=== PATIENT | female | born 1990 | race Caucasian/White ===

== ENCOUNTER 2018-03-24 20:05 | Inpatient (IN) | payer OTHER ==
[~2018-03-24] VITALS: Ht 172.7 cm; Wt 67.6 kg
[~2018-03-24 20:05] MED LIST: PROVENTIL HFA6.7 GM IH; SINGULAIR10 MG PO; SYMBICORT 80/10.2 GM IH
[2018-03-25] MEDS ORDERED: PRENATAL TABLE1 EAC1 PO (10:57)
[2018-04-01] MEDS ORDERED: CLEOCIN HCL300 MG PO (07:48)
== END 2018-04-01 09:42 | disposition home or self-care (01) | DRG 603 ==
LOC: ER → LDR 03-25 09:10 → OB/GYN 03-25 09:10 → LDR 03-25 09:55 → OB/GYN 03-25 12:41
PROVIDERS: Surgery
PROC: 4A1HXCZ Monitoring of Products of Conception, Cardiac Rate, External Approach (ICD-10-PCS; 2018-03-25)
PROC: 0H98XZZ Drainage of Buttock Skin, External Approach (ICD-10-PCS; principal; 2018-03-25 11:00)
PROC: 8E0ZXY6 Isolation (ICD-10-PCS; 2018-03-26)
DX: L02.31 Cutaneous abscess of buttock (principal); B95.62 Methicillin resistant Staphylococcus aureus infection as the cause of diseases classified elsewhere; B96.89 Other specified bacterial agents as the cause of diseases classified elsewhere

== ENCOUNTER 2018-06-28 22:19 | Outpatient (CLI) | payer OTHER ==
[~2018-06-28 22:19] MED LIST changes: +CLEOCIN HCL300 MG PO; +PRENATAL TABLE1 EAC1 PO
[2018-06-29] MEDS ORDERED: AMOX1TAB5 PO (07:23)
== END 2018-06-29 10:51 | disposition home or self-care (01) ==
LOC: OBS/DEL 22:19
DX: O26.893 Other specified pregnancy related conditions, third trimester (principal); K29.70 Gastritis, unspecified, without bleeding; O60.03 Preterm labor without delivery, third trimester; Z34.83 Encounter for supervision of other normal pregnancy, third trimester

== ENCOUNTER 2018-08-01 08:28 | Inpatient (IN) | payer OTHER ==
[~2018-08-01] VITALS: Ht 172.7 cm; Wt 74.4 kg
[~2018-08-01 08:28] MED LIST changes: +AMOX1TAB5 PO
== END 2018-08-04 16:39 | disposition home or self-care (01) | DRG 766 ==
LOC: LDR 08:28 → OB/GYN 09:40 → O/R 09:40 → OB/GYN 18:14
PROVIDERS: Obstetrics & Gynecology
PROC: 0UB70ZZ Excision of Bilateral Fallopian Tubes, Open Approach (ICD-10-PCS; 2018-08-01)
PROC: 4A1HXCZ Monitoring of Products of Conception, Cardiac Rate, External Approach (ICD-10-PCS; 2018-08-01)
PROC: 10D00Z1 Extraction of Products of Conception, Low, Open Approach (ICD-10-PCS; principal; 2018-08-01 10:45)
DX: O36.5930 Maternal care for other known or suspected poor fetal growth, third trimester, not applicable or unspecified (principal); O34.211 Maternal care for low transverse scar from previous cesarean delivery; O75.82 Onset (spontaneous) of labor after 37 completed weeks of gestation but before 39 completed weeks gestation, with delivery by (planned) cesarean section; Z3A.39 39 weeks gestation of pregnancy; Z37.0 Single live birth; Z30.2 Encounter for sterilization; Z22.330 Carrier of Group B streptococcus